=== PATIENT | female | born 1965 | race Hispanic/Latino ===

== ENCOUNTER 2018-06-22 08:03 | Outpatient (CLI) | payer BC | END 2018-06-22 08:04 | disposition home or self-care (01) | LOC: BICMAMMO 08:03 | PROVIDERS: ATTEND Nurse Practitioner Family | DX: Z12.31 Encounter for screening mammogram for malignant neoplasm of breast (principal) | CPT/HCPCS: 77063; 77067 ==

== ENCOUNTER 2019-08-29 07:32 | Outpatient (CLI) | payer BC ==
--- NOTE | 2019-08-29 08:50 | MMO ---
Bilateral MAMMO Bilat Screen [facility]. CLINICAL HISTORY: Patient is 54 years old and is seen for screening. The patient has the following family history of breast cancer: mother. The patient has no personal history of cancer. VIEWS: The views performed were: bilateral craniocaudal with tomosynthesis and bilateral mediolateral oblique with tomosynthesis. FILMS COMPARED: The present examination has been compared to prior imaging studies performed at [facility] on 03/21/2012, 03/22/2012, 04/15/2014 and 06/22/2018. This study has been interpreted with the assistance of computer-aided detection. MAMMOGRAM FINDINGS: There are scattered fibroglandular densities. There are no suspicious masses, suspicious calcifications, or new areas of architectural distortion. IMPRESSION: THERE IS NO MAMMOGRAPHIC EVIDENCE OF MALIGNANCY. A ROUTINE FOLLOW-UP MAMMOGRAM IN 1 YEAR IS RECOMMENDED. THE RESULTS OF THIS EXAM WERE SENT TO THE PATIENT. ACR BI-RADS Category 1 - Negative MAMMOGRAPHY NOTE: 1. A negative mammogram report should not delay a biopsy if a dominant of clinically suspicious mass is present. 2. Approximately 10% to 15% of breast cancers are not detected by mammography. 3. Adenosis and dense breasts may obscure an underlying neoplasm. Reported by: JACINTO LOPEZ MD Electonically Signed: [id number]
--- NOTE | 2019-08-29 08:51 | BD ---
EXAM: Bone densitometry using DEXA HISTORY: 54 yo female. Screening for postmenopausal osteoporosis FINDINGS: L1--bone mineral density 0.792 g/sq cm; T score -1.8 ; Z score -1.0 L2--bone mineral density 0.864 g/sq cm; T score -1.5 ; Z score -0.6 L3--bone mineral density 0.840 g/sq cm; T score -2.2 ; Z score -1.2 L4--bone mineral density 0.747 g/sq cm; T score -2.9 ; Z score -1.8 Total L1-L4--bone mineral density 0.810 g/sq cm; T score -2.2 ; Z score -1.2 Left femoral neck--bone mineral density0.616; T score -2.1 ; Z score -1.2 Total proximal left femur--bone mineral density 0.790; T score -1.2 ; Z score -0.6 The 10 year fracture risk for a major osteoporotic fracture is 6.8% and for a hip fracture is 0.8%. IMPRESSION: Osteopenia
--- NOTE | 2019-08-29 08:56 | RAD ---
XR Ankle Lt 3 View STANDARD HISTORY: Left ankle pain FINDINGS: No fracture or dislocation is identified. The ankle mortise is maintained. There are posterior and pl rosario calcaneal spurs.
--- NOTE | 2019-08-29 08:57 | RAD ---
XR Foot Lt 3 View STANDARD HISTORY: left foot pain FINDINGS: No fracture or dislocation is identified. There are degenerative changes most prominent in the mid fo ot. Posterior and plantar calcaneal spurs are present.
== END 2019-08-29 07:33 | disposition home or self-care (01) ==
LOC: BICMAMMO 07:32
PROVIDERS: ATTEND Family Medicine
DX: Z12.31 Encounter for screening mammogram for malignant neoplasm of breast (principal); Z13.820 Encounter for screening for osteoporosis; M79.672 Pain in left foot; M54.5 Low back pain; R29.4 Clicking hip; M85.89 Other specified disorders of bone density and structure, multiple sites; Z80.3 Family history of malignant neoplasm of breast
CPT/HCPCS: 77063; 77067; 77080